=== PATIENT | male | born 1955 | race Caucasian/White ===

== ENCOUNTER 2017-12-01 12:31 | Emergency (ER) | payer OTHER, BC ==
[2017-12-01] MEDS: IPRATROPIUM (NEB) 0.5 MG/2.5 ML AMP NEB ×2 (16:15→16:26)
[2017-12-01] MEDS: ALBUTEROL 0.083% (NEB) 2.5 MG/3 ML AMP NEB ×2 (16:15→16:26)
[2017-12-01] MEDS: predniSONE 20 MG TAB PO (16:25)
== END 2017-12-01 18:00 | disposition home or self-care (01) ==
LOC: FTE 12:31
DX: J06.9 Acute upper respiratory infection, unspecified (principal); J45.901 Unspecified asthma with (acute) exacerbation
CPT/HCPCS: 71045; 87400; 94664; 99284-25